=== PATIENT | female | born 1955 | race Two or more races ===

== ENCOUNTER 2019-06-16 06:20 | Day surgery (SDC) | payer OTHER | END 2019-06-16 11:40 | disposition home or self-care (01) | LOC: AMB-ENDOS 06:20 | DX: K57.30 Diverticulosis of large intestine without perforation or abscess without bleeding (principal); K92.1 Melena; K64.1 Second degree hemorrhoids; Z12.11 Encounter for screening for malignant neoplasm of colon ==